=== PATIENT | male | born 1990 | race Caucasian/White ===

== ENCOUNTER 2024-09-08 15:51 | Emergency (ER) | payer OTHER, SELFPAY ==
--- NOTE | ~2024-09-08 | XR_ITS ---
EXAM: XR hand RT min 3V DATE: 09/08/2024 16:03 HISTORY: fall . COMPARISON: None available. FINDINGS: Normal mineralization. No fracture or dislocation. No lytic or blastic lesion. Joint space s are maintained. No erosion or periosteal change. Soft tissues within normal limits. IMPRESSION: No acute osseous finding in the right hand. Reviewed, dictated and finalized at location K.
[2024-09-08 15:54] VITALS: BP 146/78; PULSE 65; RESP 16; TEMP 36.8; O2SAT 100
--- NOTE | 2024-09-08 16:22 | ED_ITS ---
HPI - Extremity Injury (Upper) General Chief Complaint: Extremity Injury, Upper Stated Complaint: Injury right hand falling down stairs Time Seen by Provider: 09/08/24 16:05 Source: patient Mode of arrival: ambulatory Limitations: no limitations History of Present Illness HPI narrative: This is a 34 year old male that presents to the ER for right hand pain after a fall this morning. Reports he slipped and fell and caught himself with his right hand. Reports pain and decreased ROM in the right thumb. Denies numbness, weakness. Related Data Allergies Allergy/AdvReac Type Severity Reaction Status Date / Time No Known Allergies Allergy Verified 09/08/24 15:52 Review of Systems Review of Systems: CONSTITUTIONAL: Denies fever MUSCULOSKELETAL: Reports joint pain, and myalgia. NEUROLOGIC: Denies numbness All systems reviewed & are unremarkable except as noted in HPI and below PMFSH Past Medical History Medical History (Updated 09/08/24 @ 17:27 by Michelle Restrepo PA-C) No active medical problems Social History Social History (Updated 09/08/24 @ 16:24 by Michelle Restrepo PA-C) Substance use: never Exam Narrative: GENERAL: Well-appearing, well-nourished, and in no acute distress. HEAD: Normocephalic, atraumatic. EYES: EOMI. EXTREMITIES: Normal range of motion. No edema or obvious deformity. Normal radial pulse. Normal sensation SKIN: Warm, dry, no rash. NEURO: No focal deficits. Alert and oriented x3. PSYCH: Normal mood and affect Course Vital Signs Vital signs: Vital Signs Temperature 98.2 F 09/08/24 15:54 Pulse Rate 65 09/08/24 15:54 Respiratory Rate 16 09/08/24 15:54 Blood Pressure 146/78 H 09/08/24 15:54 Pulse Oximetry 100 09/08/24 15:54 Temperature 98.2 F 09/08/24 15:54 Pulse Rate 65 09/08/24 15:54 Respiratory Rate 16 09/08/24 15:54 Blood Pressure 146/78 H 09/08/24 15:54 Pulse Oximetry 100 09/08/24 15:54 MDM - Extremity Injury (Upper) MDM Narrative Medical decision making narrative: Patient presents to the emergency department after a fall this morning with right hand pain. Right hand x-rays without acute osseous abnormalities. Mary ent is neurovascularly intact. Patient instructed to rest, ice and take [id number] pain medication as needed. He is to follow up with primary provider. He was given warnings to return to the ER Differential Diagnosis Differential diagnosis: Likely finger sprain and fracture of hand Imaging Data Radiologist's impression: ITS Impressions Hand X-Ray 09/08/24 17:19 IMPRESSION: No acute osseous finding in the right hand. Critical Care Time Critical Care Time Critical Care Time: No Discharge Plan Discharge Clinical Impression: Contusion Qualifiers: Encounter type: initial encounter Contusion area: hand Laterality: right Qualified Code(s): S60.221A - Contusion of right hand, initial encounter Patient Disposition: Home Condition: Stable Instructions: Contusion in Adults (ED) Additional Instructions: Return to the ER if you experience fever, redness and swelling of your extremity, numbness or any other symptoms that are concerning to you Ice and elevate extremity. Tylenol or ibuprofen as needed for pain Follow up with your doctor for further care. Patient Language: Jamaican Follow-up/Referrals: PHYSICIAN NOT ON STAFF,NONSTAFF [Primary Care Provider] -
[2024-09-08] MEDS: IBUPROFEN 600 MG TABLET PO (16:33)
== END 2024-09-08 17:40 | disposition home or self-care (01) ==
PROVIDERS: Emergency Provider Physician Assistant
DX: S60.221A Contusion of right hand, initial encounter (principal); W01.0XXA Fall on same level from slipping, tripping and stumbling without subsequent striking against object, initial encounter
CPT/HCPCS: 73130; 99283; A9270